=== PATIENT | female | born 1940 | race African-American/Black ===

== ENCOUNTER 2020-02-16 13:56 | Emergency (ER) | payer SELFPAY ==
[~2020-02-16] VITALS: Ht 162.6 cm; Wt 82.0 kg
[2020-02-16] MEDS ORDERED: OMEP20TA2 PO (14:20)
[2020-02-16] MEDS ORDERED: ROSU20TA2 PO (14:20)
[2020-02-16] MEDS ORDERED: CARV6.2548 PO (14:20)
[2020-02-16] MEDS ORDERED: ASPI81TA47 PO (14:20)
[2020-02-16] MEDS ORDERED: MEMA10TA55 PO (14:20)
[2020-02-16] MEDS ORDERED: OXYB5SYR2 PO (14:20)
[2020-02-16] MEDS ORDERED: DONE10TA36 PO (14:20)
[2020-02-16] MEDS ORDERED: LEVO25TA7 PO (14:20)
[2020-02-16] MEDS ORDERED: AMI2 PO (14:20)
[2020-02-16 16:16] LABS: BASOPHILS % 0.9 % (0.0-2.0); EOSINOPHILS % 1.2 % (0.0-5.0); HEMATOCRIT. 38.3 % (36.0-48.0); HEMOGLOBIN. 13.2 g/dL (12.0-16.0); LYMPHOCYTES % 21.3 % (20.0-50.0); MEAN CORPUSCULAR HEMOGLOBIN 29.6 pg (28.0-32.0); MEAN CORPUSCULAR VOLUME 85.8 fL (81.0-99.0); MEAN PLATELET VOLUME 7.2 fl (7.4-10.4); MONOCYTES % 14.3 % (2.0-8.0); NEUTROPHILS % 62.3 % (40.0-76.0); PLATELET 146 x1000/uL (130-400); RED BLOOD CELL COUNT 4.46 mill/uL (4.2-5.4); RED CELL DISTRIBUTION WIDTH 16.9 % (11.6-14.6)
[2020-02-16 16:21] LABS: CHLORIDE 108 mEq/L (98-107)
[2020-02-16 17:57] VITALS: BP 116/68
[2020-02-16] MEDS ORDERED: CLOTRIMAZOLE 1% CREAM 30GM TOP SCH (21:00)
== END 2020-02-16 18:08 | disposition home or self-care (01) ==
LOC: ER 13:56
DX: S92.511A Displaced fracture of proximal phalanx of right lesser toe(s), initial encounter for closed fracture (principal); E03.9 Hypothyroidism, unspecified; E78.00 Pure hypercholesterolemia, unspecified; I10 Essential (primary) hypertension; K21.9 Gastro-esophageal reflux disease without esophagitis; I49.9 Cardiac arrhythmia, unspecified; Z98.890 Other specified postprocedural states; Z79.899 Other long term (current) drug therapy; Z91.013 Allergy to seafood; Z79.82 Long term (current) use of aspirin; X58.XXXA Exposure to other specified factors, initial encounter; Y93.89 Activity, other specified; Y92.89 Other specified places as the place of occurrence of the external cause; Y99.8 Other external cause status
CPT/HCPCS: 36415; 73630; 80053; 84443; 84484; 85025; 99285; Z7610

== ENCOUNTER 2021-01-09 08:25 | Emergency (ER) | payer OTHER ==
[~2021-01-09] VITALS: Ht 167.6 cm; Wt 77.0 kg
[~2021-01-09 08:25] MED LIST: AMI2 PO; ASPI81TA47 PO; CARV6.2548 PO; DONE10TA36 PO; LEVO25TA7 PO; MEMA10TA55 PO; OMEP20TA2 PO; OXYB5SYR2 PO; ROSU20TA2 PO
[2021-01-09] MEDS ORDERED: SODIUM CHLORIDE 0.9% 250 ML IV ONE (09:00)
[2021-01-09] MEDS ORDERED: ASPIRIN 81MG TABLET PO ONE (09:00)
[2021-01-09 09:44] LABS: BASOPHILS % 0.5 % (0.0-2.0); EOSINOPHILS % 1.5 % (0.0-5.0); HEMATOCRIT. 40.7 % (36.0-48.0); HEMOGLOBIN. 13.6 g/dL (12.0-16.0); LYMPHOCYTES % 35.1 % (20.0-50.0); MEAN CORPUSCULAR HEMOGLOBIN 29.8 pg (28.0-32.0); MEAN CORPUSCULAR VOLUME 88.9 fL (81.0-99.0); MONOCYTES % 6.3 % (2.0-8.0); NEUTROPHILS % 56.6 % (40.0-76.0); PLATELET 179 x1000/uL (130-400); RED BLOOD CELL COUNT 4.57 mill/uL (4.2-5.4); RED CELL DISTRIBUTION WIDTH 16.3 % (11.6-14.6)
[2021-01-09 09:51] LABS: CHLORIDE 109 mEq/L (98-107)
[2021-01-09 13:14] LABS: T4 FREE 1.23 ng/dL (0.76-1.46)
[2021-01-09] MEDS ORDERED: MAGNESIUM/ALUMINUM HYDROXIDE/SIMETHICONE 30ML UDC PO PRN (13:30)
[2021-01-09] MEDS ORDERED: IPRATROPIUM/ALBUTEROL 0.5-3(2.5)MG/3ML NEB NEB PRN (13:30)
[2021-01-09] MEDS ORDERED: NITROGLYCERIN 0.4MG TABLET SL SL PRN (13:30)
[2021-01-09] MEDS ORDERED: GUAIFENESIN 200MG/10ML SUGAR FREE UDC PO PRN (13:30)
[2021-01-09] MEDS ORDERED: ONDANSETRON HCL 4MG/2ML INJ IV PRN (13:30)
[2021-01-09] MEDS ORDERED: NA PHOS,M-B/NA PHOS,DI-BA ENEMA 118ML PR PRN (13:30)
[2021-01-09] MEDS ORDERED: DOCUSATE SODIUM 100MG CAPSULE PO PRN (13:30)
[2021-01-09] MEDS ORDERED: ZOLPIDEM TARTRATE 5MG TABLET PO PRN (13:30)
[2021-01-09] MEDS ORDERED: ACETAMINOPHEN 325MG TABLET PO PRN ×2 (13:30)
[2021-01-09] MEDS ORDERED: FAMOTIDINE 20MG TABLET PO SCH (14:00)
[2021-01-09] MEDS ORDERED: ENOXAPARIN 40MG/0.4ML SYR SUBCUT SCH (14:00)
[2021-01-09 14:55] LABS: FOLIC ACID (FOLATE) SERUM >20 ng/mL ng/mL (>5.38)
[2021-01-09 15:06] LABS: VITAMIN B12 SERUM 1087 pg/mL (211-911)
[2021-01-09 15:32] LABS: CREATINE KINASE 173 IU/L (26-192)
[2021-01-09 15:33] LABS: CREATINE KINASE MB FRACTION 1.7 ng/mL (0.5-3.6)
[2021-01-09] MEDS: CLONIDINE 0.1MG TABLET PO PRN (18:12)
[2021-01-09] MEDS: TRAMADOL 50MG TABLET PO PRN ×2 (18:13→18:42)
[2021-01-09] MEDS ORDERED: LISINOPRIL 10MG TABLET PO SCH (21:00)
[2021-01-09] MEDS ORDERED: LISINOPRIL 20MG TABLET PO SCH (21:00)
[2021-01-10] MEDS: CLONIDINE 0.1MG TABLET PO PRN (00:13)
[2021-01-10 00:39] VITALS: BP 196/94
[2021-01-10] MEDS: TRAMADOL 50MG TABLET PO PRN (00:39)
[2021-01-10] MEDS ORDERED: LEVOTHYROXINE SODIUM 25MCG TABLET PO SCH (07:50)
[2021-01-10] MEDS ORDERED: ASPIRIN 325MG EC TABLET PO SCH (09:00)
[2021-01-10] MEDS ORDERED: ZINC SULFATE 220 MG ( 50 ) CAPSULE PO SCH (09:00)
[2021-01-10] MEDS ORDERED: SODIUM BICARBONATE 8.4% 1 MEQ/ML 50ML SYR IV ONE ×2 (10:52→10:55)
[2021-01-10] MEDS ORDERED: AMIODARONE HCL 50MG/ML 3ML VIAL IV ONE (10:52)
[2021-01-10] MEDS ORDERED: CALCIUM CHLORIDE 1GM/10ML SYR IV ONE ×2 (10:52→10:55)
[2021-01-10] MEDS ORDERED: EPINEPHRINE 0.1MG/ML (1:10,000) 10ML SYR ONE ×2 (10:52→10:55)
[2021-01-10] MEDS ORDERED: ATROPINE SULFATE 1MG/10ML SYR ONE (10:55)
[2021-01-10] MEDS ORDERED: MAGNESIUM SULFATE 4G IN WATER 100ML PREMIX IV ONE (10:55)
== END 2021-01-10 01:41 ==
LOC: ER 08:25 → EDBEDREQSVC 11:18 → EDBEDREQ 11:18 → SUPCPDRO 13:29 → CANRESERV 23:37 → ENRESERV 23:37 → ER 01-10 01:41 → CANBEDREQ 01-10 11:35
DX: R55 Syncope and collapse (principal); R00.1 Bradycardia, unspecified; R53.1 Weakness; R42 Dizziness and giddiness; K21.9 Gastro-esophageal reflux disease without esophagitis; E78.00 Pure hypercholesterolemia, unspecified; I10 Essential (primary) hypertension; Z79.899 Other long term (current) drug therapy; Z20.822 Contact with and (suspected) exposure to COVID-19
CPT/HCPCS: 36415; 70450; 71045; 80053; 80061; 82550; 82553; 82607; 82746; 82962; 83036; 83540; 83550; 83880; 84439; 84443; 84481; 84484; 85025; 87040; 87426; 93005; 96360; 96372; 99291; J0282; J0461; J1650; J3475; J3490; J7050